=== PATIENT | female | born 1960 ===

== ENCOUNTER 2024-12-27 10:24 | Observation (INO) | payer OTHER ==
[2024-12-27] MEDS ORDERED: PROMETHAZINE INJ 25 MG/ML AMP ONE (11:32)
[2024-12-27] MEDS ORDERED: VANCOMYCIN 1 GM/VIAL ONE (11:32)
[2024-12-27] MEDS ORDERED: NA CHLORIDE 0.9% 250 ML ONE (11:33)
[2024-12-27] MEDS ORDERED: MORPHINE 4 MG/ML SYR ONE ×2 (11:33→13:37)
--- NOTE | 2024-12-27 12:21 | RAD REPORT ---
EXAM:Extremity Venous Uni Ltd HISTORY: Left leg pain TECHNIQUE: Sonographic evaluation left lower extremity performed.Grayscale, color and spectral analys is performed on all vessels COMPARISON: None. FINDINGS: Left common femoral, superficial femoral, greater saphenous, popliteal and posterior tibial veins are compressible and demonstrate augmentation. Doppler demonstrates good flow. IMPRESSION: No evidence of deep venous thrombosis involving the left lower extremity.
--- NOTE | 2024-12-27 12:22 | RAD REPORT ---
EXAMINATION: UPPER EXTREMITY VENOUS UNILATE CLINICAL INDICATION: Arm pain TECHNIQUE: Complete bilateral duplex sonography of the right upper extremity veins was performed. The examination included compression for vein patency, color Doppler imaging and flow augmentation in response to distal compression of the internal jugular,, subclavian, axillary, brachial, radial, ulna r, cephalic and basilic veins. .Grayscale, color and spectral analysis performed on all vessels COMPARISON: No prior exam. FINDINGS: The right internal jugular, subclavian, axillary, brachial, basilic, cephalic, radial and ulnar veins are generally compressible and demonstrate augmentation. Color Doppler demonstrates good flow. IMPRESSION: No evidence of venous thrombus right arm
[2024-12-27 12:50] LABS: Absolute Basophils 0.1 K/uL (0-0.5); Absolute Lymphocytes (CBC) 1.4 K/uL (0.7-4.9); Absolute Monocytes 1.1 K/uL (0.1-1.3); Absolute Neutrophil 9.1 K/uL (1.8-8.0); Basophils % 0.7 % (0-1.3); Eosinophils % 0.3 % (0-4.4); Hemoglobin 12.3 g/dL (12.0-15.0); Lymphocytes % 12.1 % (15.3-44.8); MCH 31.9 pg (27.0-35.0); MCHC 34.1 g/dL (32.0-36.0); MCV 93.7 fL (80-100); MPV 6.9 fL (7.6-11.3); Monocytes % 9.1 % (3.3-12.3); Neutrophils % 77.8 % (41.7-73.7); Platelets 205 thou/uL (152-406); RBC Red Blood Cell Count 3.84 M/uL (3.86-4.86); Red Cell Distribution Width 13.9 % (12.1-15.2)
[2024-12-27 12:58] LABS: PT Prothrombin Time 11.7 SECONDS (10-13.0); PTT, Activated Partial Thromb 29.5 SECONDS (27.2-37.4); Protime INR 1.03
[2024-12-27 13:07] LABS: Albumin 2.8 g/dL (3.4-5.0); Albumin/Globulin Ratio 0.8 (1.1-1.8); Anion Gap 8.5 mEq/L (5.0-15.0); Bilirubin Total 0.8 mg/dL (0.2-1.0); Globulin 3.4 g/dL (2.3-3.5); Potassium 3.5 mEq/L (3.5-5.1); Protein, Total 6.2 g/dL (6.4-8.2)
[2024-12-27] MEDS ORDERED: KETOROLAC 30 MG/ML INJ ONE (13:37)
--- NOTE | 2024-12-27 14:28 | EDPHYS ---
Physician Documentation [facility] Name: Ines Cain Age: 64 yrs Sex: Female : 1960 Arrival Date: 12/27/2024 Time: 10:24 Bed 5 Private MD: ED Physician Valentín Murry HPI: 12/27 13:52 This 64 yrs old Unknown Female presents to ER via Wheelchair with complaints of Nausea, rt Foot Pain. 13:52 Patient presents to the ED with progressively worsening left foot pain, swelling rt starting on Thursday after receiving massage at the [facility]. He states that he went to the ER [place] on Thursday, negative x-ray. Reports that she developed nausea today. She noted that she was febrile, tachycardic with reportedly high white count at [place] but does not know the numbers. Was told to come to the ER by her PCP today. Denies of acute complaints, symptoms are moderate in severity, no other aggravating or alleviating factors.. Historical: - Allergies: 10:55 No Known Allergies; db - PMHx: 10:55 Cancer; Cancer; db - PSHx: 10:55 BREAST; db - Immunization history:: Adult Immunizations unknown. - Infectious Disease History:: Denies. - Social history:: Smoking status: Patient denies any tobacco usage or history of. - Family history:: not pertinent. ROS: 13:52 Constitutional: Negative for fever, chills, and weight loss, Cardiovascular: Negative rt for chest pain, palpitations, and edema, Respiratory: Negative for shortness of breath, cough, wheezing, and pleuritic chest pain, 13:52 Abdomen/GI: Positive for nausea, Negative for abdominal pain, 13:52 MS/extremity: Positive for pain, swelling, Exam: 13:52 ECG was reviewed by the Attending Physician. rt 13:56 Constitutional: This is a well developed, well nourished patient who is awake, alert, rt and in no acute distress. Head/Face: Normocephalic, atraumatic. Chest/axilla: Normal chest wall appearance and motion. Nontender with no deformity. No lesions are appreciated. Cardiovascular: Regular rate and rhythm with a normal S1 and S2. No gallops, murmurs, or rubs. Normal PMI, no JVD. No pulse deficits. Respiratory: Lungs have equal breath sounds bilaterally, clear to auscultation and percussion. No rales, rhonchi or wheezes noted. No increased work of breathing, no retractions or nasal flaring. Abdomen/GI: Soft, non-tender, with normal bowel sounds. No distension or tympany. No guarding or rebound. No evidence of tenderness throughout. 13:56 Musculoskeletal/extremity: Warmth, erythema noted to the left ankle, pulses, motor, sensation are intact. Vital Signs: 10:45 BP 127 / 85; Pulse 67; Resp 16; Temp 98.7(O); Pulse Ox 100% ; Weight 81.65 kg; Height 5 db ft. 2 in. ; Pain 10/10; 13:00 BP 133 / 79; Pulse 65; Resp 20; Pulse Ox 98% ; kn 13:20 Pain 10/10; jl7 13:49 BP 136 / 72; Pulse 69; Resp 15; Pulse Ox 99% ; jl7 16:53 BP 129 / 74; Pulse 63; Resp 17; Pulse Ox 95% ; jl7 10:45 Body Mass Index 32.92 (81.65 kg, 157.48 cm) db 10:45 Pain Scale: Adult db 13:20 Pain Scale: Adult jl7 MDM: 10:46 Medical Screening Exam initiated rt 14:27 Differential diagnosis: Cellulitis, DVT. Data reviewed: vital signs, nurses notes, lab rt test result(s), EKG, radiologic studies. Consideration of Admission/Observation Patient was admitted/placed on observation. Management of patient was discussed with the following: Hospitalist: Agrees to admit. I considered the following discharge prescriptions or medication management in the emergency department Medications were administered in the Emergency Department. See MAR. Test considered but Not performed: X-ray: Low suspicion for bony abnormality, x-rays are not indicated. Counseling: I had a detailed discussion with the patient and/or guardian regarding the historical points, exam findings, and any diagnostic results supporting the discharge/admit diagnosis, lab results, radiology results, the need for further work-up and treatment in the hospital. Response to treatment: the patient's symptoms have mildly improved after treatment. 12/27 11:13 Order name: Blood Culture Adult (2) rt 12/27 11:13 Order name: CBC with Diff; Complete Time: 13:12 rt 12/27 11:13 Order name: CMP; Complete Time: 13:12 rt 12/27 11:13 Order name: Lactate w/ 2H reflex if indic.; Complete Time: 13:12 rt 12/27 11:13 Order name: Protime (+inr); Complete Time: 13:12 rt 12/27 11:13 Order name: Ptt, Activated; Complete Time: 13:12 rt 12/27 15:53 Order name: Uric Acid EDMS 12/27 15:53 Order name: Basic Metabolic Panel EDMS 12/27 15:53 Order name: Basic Metabolic Panel EDMS 12/27 15:54 Order name: Basic Metabolic Panel EDMS 12/27 15:54 Order name: Basic Metabolic Panel EDMS 12/27 15:54 Order name: Basic Metabolic Panel EDMS 12/27 15:54 Order name: Basic Metabolic Panel EDMS 12/27 15:54 Order name: Basic Metabolic Panel EDMS 12/27 15:54 Order name: Basic Metabolic Panel EDMS 12/27 15:54 Order name: CBC with Automated Diff EDMS 12/27 15:54 Order name: CBC with Automated Diff EDMS 12/27 15:54 Order name: CBC with Automated Diff EDMS 12/27 15:54 Order name: CBC with Automated Diff EDMS 12/27 15:54 Order name: CBC with Automated Diff EDMS 12/27 15:54 Order name: CBC with Automated Diff EDMS 12/27 15:54 Order name: CBC with Automated Diff EDMS 12/27 15:54 Order name: CBC with Automated Diff EDMS 12/27 15:54 Order name: Magnesium EDMS 12/27 15:54 Order name: Magnesium EDMS 12/27 15:54 Order name: Magnesium EDMS 12/27 15:54 Order name: Magnesium EDMS 12/27 15:54 Order name: Magnesium EDMS 12/27 15:54 Order name: Magnesium EDMS 12/27 15:54 Order name: Magnesium EDMS 12/27 15:54 Order name: Magnesium EDMS 12/27 15:54 Order name: Phosphorus EDMS 12/27 15:54 Order name: Phosphorus EDMS 12/27 15:54 Order name: Phosphorus EDMS 12/27 15:54 Order name: Phosphorus EDMS 12/27 15:54 Order name: Phosphorus EDMS 12/27 15:54 Order name: Phosphorus EDMS 12/27 15:54 Order name: Phosphorus EDMS 12/27 15:54 Order name: Phosphorus EDMS 12/27 16:25 Order name: Vancomycin Level Trough EDMS 12/27 11:13 Order name: Extremity Venous Uni Ltd US; Complete Time: 12:26 rt 12/27 11:21 Order name: UPPER EXTREMITY VENOUS UNILATE; Complete Time: 12:26 EDMS 12/27 15:54 Order name: Foot Left W/Con EDMS 12/27 11:13 Order name: EKG; Complete Time: 11:14 rt 12/27 11:13 Order name: Accucheck; Complete Time: 12:50 rt 12/27 11:13 Order name: Cardiac monitoring; Complete Time: 11:57 rt 12/27 11:13 Order name: EKG - Nurse/Tech; Complete Time: 12:42 rt 12/27 11:13 Order name: IV Saline Lock - Large Bore; Complete Time: 12:42 rt 12/27 11:13 Order name: Labs collected and sent; Complete Time: 12:42 rt 12/27 11:13 Order name: O2 Per Protocol; Complete Time: 12:42 rt 12/27 11:13 Order name: O2 Sat Monitoring; Complete Time: 12:42 rt 12/27 11:13 Order name: Vital Signs; Complete Time: 12:42 rt EC:52 Rate is 61 beats/min. Rhythm is regular, Normal Sinus Rhythm with No ectopy. QRS [place] rt is Normal. DE interval is normal. QRS interval is normal. QT interval is normal. No Q waves. T waves are Normal. No ST changes noted. Interpreted by me. Administered Medications: 12:20 Drug: Promethazine IM 12.5 mg IM once Route: IM; Site: left deltoid; jl7 12:40 Follow up: Response: No adverse reaction; Nausea is decreased jl7 12:45 Drug: morphine IVP or IV 4 mg IVP once over 4 mins Route: IVP; Infused Over: 4 mins; jl7 Site: left antecubital; 13:20 Follow up: Pain 10/10 Adult; Response: No adverse reaction; Pain is unchanged, jl7 physician notified; RASS: Restless (+1) 12:47 Drug: vancoMYCIN IVPB 1 grams IVPB once over 2 hrs Route: IVPB; Infused Over: 2 hrs; jl7 Site: left antecubital; 14:47 Follow up: Response: No adverse reaction; IV Status: Completed infusion jl7 13:43 Drug: Ketorolac IVP 15 mg IVP once Route: IVP; Site: left antecubital; jl7 14:15 Follow up: Response: No adverse reaction; Pain is decreased jl7 13:43 Drug: morphine IVP or IV 4 mg IVP once over 4 mins Route: IVP; Infused Over: 4 mins; jl7 Site: left antecubital; 14:15 Follow up: Response: No adverse reaction; Pain is decreased jl7 Disposition Summary: 12/27/24 14:27 Hospitalization Ordered Notes: Hospitalization Status: Observation rt Provider: Jeffry Lassiter rt Location: Telemetry/MedSurg (observation) rt Condition: Stable rt Problem: new rt Symptoms: are unchanged rt Bed/Room Type: Standard rt Room Assignment: 216(12/27/24 16:05) bd Diagnosis - Cellulitis to left lower extremity rt - Intractable pain rt Forms: - Medication Reconciliation Form rt - SBAR form rt - Leadership Thank You Letter rt Signatures: Dispatcher [employer] EDAmelia Gunn Jahala, RN RN jl7 Madyson Martinez, RN RN db Valentín Murry MD MD rt Corrections: (The following items were deleted from the chart) 11:14 11:14 Extremity Venous Uni Ltd+[email or web address] ordered. EDIN EDMS 16:05 14:27 rt bd
--- NOTE | 2024-12-27 14:28 | ER ---
Nurse's Notes [facility] Name: Ines Cain Age: 64 yrs Sex: Female : 1960 Arrival Date: 12/27/2024 Time: 10:24 Bed 5 Private MD: Diagnosis: Cellulitis to left lower extremity;Intractable pain Presentation: 12/27 10:45 Chief complaint: Patient states: NAUSEA STARTED TODAY 0800. LEFT FOOT SWELLING SINCE db THURSDAY AFTER RECEIVING FOOT MASSAGE DURING PEDICURE. PAIN AND SWELLING STARTED IN EVENING GRADUALLY GOT WORSE. SEEN AT [facility] FOR PAIN ONLY XRAY PERFORMED NO FRX. TODAY PAIN IS WORSE WITH INCREASED SWELLING UNABLE TO BEAR WEIGHT ON FOOT. HX OF LYMPHADEMA AND CANCER. TEXT PCP TOLD TO COME TO ER TODAY. STATES THURSDAY HAD A RASH , FEVER, AND ELEVATED WBC TO RIGHT ARM. SWELLING AND RASH TO ARM ARE NOW GONE. 10:45 Coronavirus screen: Client denies travel out of the [place] in the last 14 days. At this db time, the client does not indicate any symptoms associated with coronavirus-19. Ebola Screen: Patient negative for fever greater than or equal to 101.5 degrees Fahrenheit, and additional compatible Ebola Virus Disease symptoms Patient denies exposure to infectious person. Patient denies travel to an Ebola-affected area in the 21 days before illness onset. No symptoms or risks identified at this time. Initial Sepsis Screen: Does the patient meet any 2 criteria? No. Patient's initial sepsis screen is negative. Does the patient have a suspected source of infection? No. Patient's initial sepsis screen is negative. Risk Assessment: Do you want to hurt yourself or someone else? Patient reports no desire to harm self or others. Onset of symptoms was December 24, 2024. 10:45 Method Of Arrival: Wheelchair db 10:45 Acuity: PALOMO 3 db Triage Assessment: 10:45 General: Appears in no apparent distress. uncomfortable, Behavior is calm, cooperative. db Pain: Complains of pain in left foot. EENT: No deficits noted. No signs and/or symptoms were reported regarding the EENT system. Neuro: Level of Consciousness is awake, alert, obeys commands, Oriented to person, place, time, situation, Speech is normal. Cardiovascular: No deficits noted. Respiratory: Airway is patent Respiratory effort is even, unlabored, Respiratory pattern is regular, symmetrical. GI: Reports nausea. Musculoskeletal: Capillary refill < 3 seconds, Swelling present in left foot. Historical: - Allergies: 10: No Known Allergies; db - PMHx: 10:55 Cancer; Cancer; db - PSHx: 10:55 BREAST; db - Immunization history:: Adult Immunizations unknown. - Infectious Disease History:: Denies. - Social history:: Smoking status: Patient denies any tobacco usage or history of. - Family history:: not pertinent. Screenin: [facility] ED Fall Risk Assessment (Adult) History of falling in the last 3 months, db including since admission No falls in past 3 months (0 pts) Confusion or Disorientation No (0 pts) Intoxicated or Sedated No (0 pts) Impaired Gait No (0 pts) Mobility Assist Device Used No (0 pt) Altered Elimination No (0 pt) Score/Fall Risk Level 0 - 2 = Low Risk Oriented to surroundings, Maintained a safe environment. Abuse screen: Denies threats or abuse. Denies injuries from another. Nutritional screening: No deficits noted. Tuberculosis screening: No symptoms or risk factors identified. Assessment: 10:55 Reassessment: SEE TRIAGE FOR INITIAL ASSESSMENT. db 12:00 General: Appears in no apparent distress. uncomfortable, Behavior is cooperative, jl7 crying. Pain: Complains of pain in left foot Pain currently is 10 out of 10 on a pain scale. Neuro: Toribio Agitation-Sedation Scale (RASS): +1 Restless Level of Consciousness is awake, alert, obeys commands, Oriented to person, place, time, situation. Cardiovascular: Patient's skin is warm and dry. Respiratory: Airway is patent Respiratory effort is even, unlabored, Respiratory pattern is regular, symmetrical. GI: Abdomen is non-distended, Reports nausea. Derm: Skin is pink, warm \T\ dry. Musculoskeletal: Swelling present in left foot. 13:00 Reassessment: Patient appears in no apparent distress at this time. No changes from jl7 previously documented assessment. Patient and/or family updated on plan of care and expected duration. Pain level reassessed. Patient is alert, oriented x 3, equal unlabored respirations, skin warm/dry/pink. Vital Signs: 10:45 BP 127 / 85; Pulse 67; Resp 16; Temp 98.7(O); Pulse Ox 100% ; Weight 81.65 kg; Height 5 db ft. 2 in. ; Pain 10/10; 13:00 BP 133 / 79; Pulse 65; Resp 20; Pulse Ox 98% ; kn 13:20 Pain 10/10; jl7 13:49 BP 136 / 72; Pulse 69; Resp 15; Pulse Ox 99% ; jl7 16:53 BP 129 / 74; Pulse 63; Resp 17; Pulse Ox 95% ; jl7 10:45 Body Mass Index 32.92 (81.65 kg, 157.48 cm) db 10:45 Pain Scale: Adult db 13:20 Pain Scale: Adult jl7 ED Course: 10:31 Patient arrived in ED. al6 10:36 Valentín Murry MD is Attending Physician. rt 10:45 Arm band placed on Patient placed in an exam room. db 10:48 Madyson Martinez, RN is Primary Nurse. db 10:55 Triage completed. db 10:55 Patient has correct armband on for positive identification. Bed in low position. Call db light in reach. Side rails up X 1. Pulse ox on. NIBP on. Warm blanket given. Pillow given. 11:28 Nam Call, RN is Primary Nurse. jl7 12:10 Extremity Venous Uni Ltd US In Process Unspecified. EDMS 12:10 UPPER EXTREMITY VENOUS UNILATE In Process Unspecified. EDMS 12:10 Missed attempt(s): 22 gauge in left forearm. Bleeding controlled, band aid applied, jl7 catheter tip intact. 12:15 Missed attempt(s): 22 gauge in left forearm. Bleeding controlled, band aid applied, jl7 catheter tip intact. 12:30 Initial lab(s) drawn, by me, sent to lab. First set of blood cultures drawn by me. jl7 12:40 Accessed peripheral vein via ultrasound, utilizing dynamic ultrasound technique using ss 20G Nexia IV catheter ,sterile technique, per hospital protocol. Clean \T\ dry. Dressing intact. Good blood return. Flushes easily. L AC. 12:40 No provider procedures requiring assistance completed. jl7 12:40 Second set of blood cultures drawn by me. jl7 13:00 Provided Education on: use of call [place]. jl7 14:25 Jeffry Lassiter is Hospitalizing Provider. rt 17:25 Patient admitted, IV remains in place. intact, No redness/swelling at site. jl7 Administered Medications: 12:20 Drug: Promethazine IM 12.5 mg IM once Route: IM; Site: left deltoid; jl7 12:40 Follow up: Response: No adverse reaction; Nausea is decreased jl7 12:45 Drug: morphine IVP or IV 4 mg IVP once over 4 mins Route: IVP; Infused Over: 4 mins; jl7 Site: left antecubital; 13:20 Follow up: Pain 10/10 Adult; Response: No adverse reaction; Pain is unchanged, jl7 physician notified; RASS: Restless (+1) 12:47 Drug: vancoMYCIN IVPB 1 grams IVPB once over 2 hrs Route: IVPB; Infused Over: 2 hrs; jl7 Site: left antecubital; 14:47 Follow up: Response: No adverse reaction; IV Status: Completed infusion jl7 13:43 Drug: Ketorolac IVP 15 mg IVP once Route: IVP; Site: left antecubital; jl7 14:15 Follow up: Response: No adverse reaction; Pain is decreased jl7 13:43 Drug: morphine IVP or IV 4 mg IVP once over 4 mins Route: IVP; Infused Over: 4 mins; jl7 Site: left antecubital; 14:15 Follow up: Response: No adverse reaction; Pain is decreased jl7 Medication: 10:55 VIS not applicable for this client. db Outcome: 14:27 Decision to Hospitalize by Provider. rt 17:24 Admitted to Med/surg via stretcher, with chart, jl7 17:24 Condition: stable 17:24 Discharge instructions given to patient, Instructed on the need for admit, Demonstrated understanding of instructions, 17:50 Patient left the ED. bc6 Signatures: Dispatcher [employer] EDMS Rosalia Bennett RN Nam Persaud RN RN jl7 Madyson Martinez RN RN db [place], Ryan, MD MD rt Beverly Vazquez bc6 BOB ZARATE RN RN kn Landin, Alissa al6 Corrections: (The following items were deleted from the chart) 10:58 10:55 General: Appears in no apparent distress. uncomfortable, Behavior is calm, db cooperative, db 10:58 10:55 Pain: Complains of pain in left foot db db 10:58 10:55 Neuro: Level of Consciousness is awake, alert, obeys commands, Oriented to db person, place, time, situation, Speech is normal, db 10: 10:55 Musculoskeletal: Capillary refill < 3 seconds, Swelling present in left foot db db 10: 10:55 Respiratory: Airway is patent Respiratory effort is even, unlabored, Respiratory db pattern is regular, symmetrical, db : 10:55 Cardiovascular: No deficits noted. db db : 10:55 EENT: No deficits noted. No signs and/or symptoms were reported regarding the db EENT system. db : 10:55 GI: Reports nausea, db db
--- NOTE | 2024-12-27 14:47 | P.HP ---
Certification for Inpatient Patient admitted to: Observation Patient will require the following post-hospital care: None Practitioner: I am a practitioner with admitting privileges, knowledge of patient current condition, hospital course, and medical plan of care. Services: Services provided to patient in accordance with Admission requirements found in Title 42 Section 412.3 of the Code of Federal Regulations Patient History Date of Service: 12/27/24 Reason for admission: Acute left foot cellulitis vs sympathetic nerve damage History of Present Illness: Ines Cain is a 64 year old female with pmhx breast cancer, HTN, HLD, Hypothyroidism who presents to the ED with worsening Left foot swelling after having a pedicure on Thursday. She reports, at the time of the foot massage she felt a sharp electric pain on the lateral side of the left foot that caused pain only allowing her to use her heel to ambulate with slight comfort. She reports the pain has worsened that now the bottom of her foot is too painful to ambulate. She states she was seen in [place] with a negative left foot xray and minimal pain relief prior to discharge home. She messaged her oncologist conc erning her right arm lymphadema that is now present, they recommended coming to the ED today. US Right upper extremity reports "The right internal jugular, subclavian, axillary, brachial, basilic, cephalic, radial and ulnar veins are generally compressible and demonstrate augmentation. Color Doppler demonstrates good flow." US Left lower extremity reports "Left common femoral, superficial femoral, greater saphenous, popliteal and posterior tibial veins are compressible and demonstrate augmentation. Doppler demonstrates good flow." Ines will be admitted to hospitalist service for further evaluation and treatment of left foot cellulitis vs sympathetic nerve damage. Allergies No Known Allergies Allergy (Unverified 08/26/17 16:42) Home Medications: Aspirin [Aspirin EC 81 MG] 81 mg PO DAILY 12/27/24 Atorvastatin Calcium [Lipitor] 20 mg PO BEDTIME 12/27/24 Duloxetine HCl [Cymbalta] 60 mg PO DAILY 12/27/24 Levothyroxine Sodium [Synthroid] 25 mcg PO DAILY 12/27/24 Lisinopril/Hydrochlorothiazide [Lisinopril-Hctz 10-12.5 mg Tab] 12.5 mg PO DAILY 12/27/24 Physical Examination - Physical Exam General: Alert, In no apparent distress, Oriented x3 HEENT: Atraumatic, Normocephalic Neck: Supple, 2+ carotid pulse no bruit Respiratory: Clear to auscultation bilaterally, Normal air movement Cardiovascular: Regular rate/rhythm, Normal S1 S2 Gastrointestinal: Normal bowel sounds, Soft and benign Musculoskeletal: Swelling (Left foot ), Other (Right upper extremity edema) Neurological: Normal speech, Normal tone - Studies Laboratory Data (last 24 hrs) 12/27/24 12/27/24 12/27/24 12:40 12:40 12:40 WBC 11.70 H Hgb 12.3 Hct 36.0 Plt Count 205 PT 11.7 INR 1.03 APTT 29.5 Sodium 142 Potassium 3.5 BUN 13 Creatinine 0.80 Glucose 102 Total Bilirubin 0.8 AST 14 L ALT 66 H Alkaline Phosphatase 53 Assessment and Plan - Plan Assessment and Plan Left foot cellulitis vs sympathetic nerve damage -US Left lower extremity reports "Left common femoral, superficial femoral, greater saphenous, popliteal and posterior tibial veins are compressible and demonstrate augmentation. Doppler demonstrates good flow." -Left foot MRI with contrast pending -uric acid pending -vancomycin daily -Follow blood cultures -pain control Right breast cancer with right arm lymphedema -US Right upper extremity reports "The right internal jugular, subclavian, axillary, brachial, basilic, cephalic, radial and ulnar veins are generally compressible and demonstrate augmentation. Color Doppler demonstrates good flow." -elevate right arm HTN HLD Hypothyroidism -Continue home medications DVT ppx lovenox Full code LOS 24 hour OBS Discharge Plan: Home Plan to discharge in: 48 Hours - Advance Directives Does patient have a Living Will: No Does patient have a Durable POA for Healthcare: No
[2024-12-27] MEDS ORDERED: ACETAMINOPHEN 325 MG TABLET PO PRN (15:42)
[2024-12-27] MEDS: VANCOMYCIN 500 MG in NA CHLORIDE 0.9% 100 ML IVPB ONE (16:15)
[2024-12-27] MEDS ORDERED: HYDROCODONE/APAP 7.5/325 MG TAB ONE (17:18)
[2024-12-27] MEDS: HYDROCODONE/APAP 7.5/325 MG TAB PO PRN (17:20)
[2024-12-27 19:00] VITALS: BMI 31.8
[2024-12-27] MEDS: NA CHLORIDE 0.9% 100 ML ONE (19:42)
[2024-12-27] MEDS: VANCOMYCIN 500 MG/VIAL ONE (19:42)
[2024-12-27] MEDS: NA CHLORIDE 0.9% 1,000 ML IV SCH (19:44)
[2024-12-27] MEDS: MORPHINE 2 MG/ML SYR IV PRN (19:47)
[2024-12-27] MEDS: ATORVASTATIN 20 MG TAB PO SCH (21:31)
[2024-12-27] MEDS: KETOROLAC 30 MG/ML INJ IV ONE (23:05)
[2024-12-28 04:37] LABS: Anion Gap 9.7 mEq/L (5.0-15.0); Magnesium 1.9 mg/dL (1.6-2.4); Phosphorus 4.1 mg/dL (2.5-4.9); Potassium 3.7 mEq/L (3.5-5.1)
[2024-12-28] MEDS: LEVOTHYROXINE SOD 0.025 MG TAB PO SCH (05:30)
[2024-12-28 07:25] LABS: Absolute Basophils 0.1 K/uL (0-0.5); Absolute Eosinophils 0.1 K/uL (0-0.5); Absolute Lymphocytes (CBC) 2.4 K/uL (0.7-4.9); Absolute Monocytes 1.3 K/uL (0.1-1.3); Absolute Neutrophil 6.7 K/uL (1.8-8.0); Basophils % 0.5 % (0-1.3); Eosinophils % 0.9 % (0-4.4); Hematocrit 35.1 % (36.0-45.0); Lymphocytes % 22.8 % (15.3-44.8); MCH 31.9 pg (27.0-35.0); MCHC 34.2 g/dL (32.0-36.0); MCV 93.4 fL (80-100); MPV 6.9 fL (7.6-11.3); Monocytes % 12.1 % (3.3-12.3); Neutrophils % 63.7 % (41.7-73.7); Nucleated Red Blood Cells % 0.1 % (0-0); Platelets 176 thou/uL (152-406); RBC Red Blood Cell Count 3.76 M/uL (3.86-4.86)
[2024-12-28] MEDS: DULOXETINE 30 MG CAP PO SCH (07:48)
[2024-12-28] MEDS: POTASSIUM CL SA 10 MEQ TAB PO ONE (07:49)
[2024-12-28] MEDS: hydroCHLOROthiazide 12.5 MG CAP PO SCH (07:49)
[2024-12-28] MEDS: ASPIRIN EC 81 MG TAB PO SCH (07:49)
[2024-12-28] MEDS: lisinopriL 10 MG TAB PO SCH (07:50)
[2024-12-28 08:07] LABS: Platelet Estimate ADEQ; White Blood Cell Scan OK (OK)
[2024-12-28 08:08] LABS: Blood Morphology Comment NOT SEEN (NOT SEEN)
[2024-12-28] MEDS ORDERED: HOME MED 1 EA UNK (Lisinopril/Hydrochlorothiazide [Lisinopril-Hctz 10-12.5 Mg Tab] Tablet) PO SCH (09:00)
[2024-12-28] MEDS: VANCOMYCIN 1.5 GM in NA CHLORIDE 0.9% 500 ML IVPB SCH (09:32)
[2024-12-28] MEDS: METHYLPREDNISOLONE 40 MG INJ IV ONE (10:22)
[2024-12-28] MEDS: COLCHICINE 0.6 MG TAB PO ONE (10:22)
[2024-12-28] MEDS: KETOROLAC 30 MG/ML INJ IV ONE (10:35)
[2024-12-28 10:45] VITALS: O2SAT 97
--- NOTE | 2024-12-28 11:15 | EKG ---
Test Date: 2024-12-27 Test Time: 12:29:25 Head Banquet Waitress: KENRICK MEASUREMENT RESULTS: Intervals: Rate: 61 ND: 140 QRSD: 76 QT: 406 QTc: 408 [place]: P: 53 ND: 140 QRS: 32 T: 23 INTERPRETIVE STATEMENTS: Normal sinus rhythm Septal infarct, age undetermined Abnormal ECG No previous ECG available for comparison Electronically Signed On 12-28-24 11:13:26 CDT by Brandon Cline
[2024-12-28] MEDS ORDERED: VANCOMYCIN 1.5 GM in NA CHLORIDE 0.9% 500 ML IVPB SCH (12:00)
[2024-12-28] MEDS: COLCHICINE 0.6 MG TAB PO SCH (14:28)
[2024-12-28] MEDS: METHYLPREDNISOLONE 125 MG INJ IV SCH (16:38)
[2024-12-28] MEDS: ENOXAPARIN 40 MG/0.4 ML SQ SCH (16:39)
--- NOTE | 2024-12-28 17:58 | P.PN ---
Date of Service: 12/28/24 Subjective Good response to steroids and colchicine today Stopped hydrochlorothiazide d/t likely gout ROS 10 point ROS as noted above, otherwise negative Physical Exam General: Alert and Oriented x3, NAD HEENT: Atraumatic, Normocephalic Neck: Supple, 2+ carotid pulse no bruit Respiratory: Clear BBS, on RA Cardiovascular: Regular rate/rhythm, Normal S1 S2 Gastrointestinal: Normal bowel sounds, Soft and benign Musculoskeletal: Swelling (Left foot ), Other (Right upper extremity edema) Neurological: Normal speech, Normal tone Vitals Reviewed Problem list Left foot cellulitis vs Gout 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 Doppler demonstrates good flow." -Left foot MRI with contrast pending -vancomycin stopped, noninfectious -Follow blood cultures -Adjusted pain medications -Steroids and colchicine with good response Right breast cancer with right arm lymphedema -US Right upper extremity reports "The right internal jugular, subclavian, axillary, brachial, basilic, cephalic, radial and ulnar veins are generally compressible and demonstrate augmentation. Color Doppler demonstrates good flow." -elevate right arm -follow up outpatient for lymphatic treatment HTN HLD Hypothyroidism -Continue home medications DVT ppx lovenox Full code LOS discharge in the AM Discharge Plan: Home Plan to discharge in: 48 Hours Time Spent Managing Pts Care (In Minutes): 40
[2024-12-28] MEDS: WATER FOR INJ,STERILE 10 ML ONE (23:56)
[2024-12-29] MEDS: WATER FOR INJ,STERILE 10 ML ONE (05:22)
[2024-12-29] MEDS: HYDROMORPHONE HCL 0.5 MG/0.5 ML INJ IV PRN (05:46)
[2024-12-29 07:05] LABS: Absolute Lymphocytes (CBC) 0.7 K/uL (0.7-4.9); Absolute Monocytes 0.2 K/uL (0.1-1.3); Absolute Neutrophil 10.2 K/uL (1.8-8.0); Basophils % 0.2 % (0-1.3); Hematocrit 35.7 % (36.0-45.0); Hemoglobin 12.2 g/dL (12.0-15.0); Lymphocytes % 6.4 % (15.3-44.8); MCH 31.8 pg (27.0-35.0); MCHC 34.2 g/dL (32.0-36.0); Monocytes % 1.9 % (3.3-12.3); Neutrophils % 91.5 % (41.7-73.7); Platelets 205 thou/uL (152-406); RBC Red Blood Cell Count 3.84 M/uL (3.86-4.86); Red Cell Distribution Width 13.8 % (12.1-15.2)
[2024-12-29 07:16] LABS: Anion Gap 10.6 mEq/L (5.0-15.0); Phosphorus 3.2 mg/dL (2.5-4.9); Potassium 3.6 mEq/L (3.5-5.1)
[2024-12-29] MEDS: POTASSIUM CL SA 10 MEQ TAB PO ONE (08:43)
[2024-12-29] MEDS: COLCHICINE 0.6 MG TAB PO SCH (09:00)
[2024-12-29] MEDS: allopurinoL 300 MG TAB PO SCH (09:02)
[2024-12-29] MEDS: predniSONE 20 MG TAB PO SCH (09:02)
[2024-12-29] MEDS: METHYLPREDNISOLONE 125 MG INJ IV ONE (13:54)
--- NOTE | 2024-12-29 16:42 | P.DS ---
Admission Date: 12/27/24 Discharge Date: 12/29/24 Disposition: ROUTINE DISCHARGE Discharge Condition: GOOD Reason for Admission: Acute left foot cellulitis vs sympathetic nerve damage Brief History of Present Illness: Diagnosis HPI Ines Cain is a 64 year old female with pmhx breast cancer, HTN, HLD, Hypothyroidism who presents to the ED with worsening Left foot swelling after having a pedicure on Thursday. She reports, at the time of the foot massage she felt a sharp electric pain on the lateral side of the left foot that caused pain only allowing her to use her heel to ambulate with slight comfort. She reports the pain has worsened that now the bottom of her foot is too painful to ambulate. She states she was seen in [place] with a negative left foot xray and minimal pain relief prior to discharge home. She messaged her oncologist concerning her right arm lymphadema that is now present, they recommended coming to the ED today. US Right upper extremity reports "The right internal jugular, subclavian, axillary, brachial, basilic, cephalic, radial and ulnar veins are generally compressible and demonstrate augmentation. Color Doppler demonstrates good flow." US Left lower extremity reports "Left common femoral, superficial femoral, greater saphenous, popliteal and posterior tibial veins are compressible and demonstrate augmentation. Doppler demonstrates good flow." Ines will be admitted to hospitalist service for further evaluation and treatment of left foot cellulitis vs sympathetic nerve damage. Vital Signs/Physical Exam: Temp Pulse Resp BP Pulse Ox 98.0 F 69 18 150/86 H 97 12/29/24 12:00 12/29/24 12:00 12/29/24 12:48 12/29/24 12:00 12/29/24 12:48 Laboratory Data at Discharge: WBC 11.10 thou/uL (4.3-10.9) H 12/29/24 06:21 Hgb 12.2 g/dL (12.0-15.0) 12/29/24 06:21 Hct 35.7 % (36.0-45.0) L 12/29/24 06:21 Plt Count 205 thou/uL (152-406) 12/29/24 06:21 PT 11.7 SECONDS (10-13.0) 12/27/24 12:40 INR 1.03 12/27/24 12:40 APTT 29.5 SECONDS (27.2-37.4) 12/27/24 12:40 Sodium 141 mEq/L (136-145) 12/29/24 06:21 Potassium 3.6 mEq/L (3.5-5.1) 12/29/24 06:21 BUN 17 mg/dL (7-18) 12/29/24 06:21 Creatinine 0.92 mg/dL (0.55-1.02) 12/29/24 06:21 Glucose 175 mg/dL (74-106) H 12/29/24 06:21 Uric Acid Cancelled 12/27/24 15:50 Phosphorus 3.2 mg/dL (2.5-4.9) 12/29/24 06:21 Magnesium 2.0 mg/dL (1.6-2.4) 12/29/24 06:21 Total Bilirubin 0.8 mg/dL (0.2-1.0) 12/27/24 12:40 AST 14 U/L (15-37) L 12/27/24 12:40 ALT 66 U/L (13-56) H 12/27/24 12:40 Alkaline Phosphatase 53 U/L (45-117) 12/27/24 12:40 Home Medications: Aspirin [Aspirin EC 81 MG] 81 mg PO DAILY 12/27/24 Atorvastatin Calcium [Lipitor*] 20 mg PO BEDTIME 12/27/24 Duloxetine HCl [Cymbalta] 60 mg PO DAILY 12/27/24 Levothyroxine Sodium [Synthroid] 25 mcg PO DAILY 12/27/24 Colchicine [Colcrys *] 0.6 mg PO BID #10 tab 12/29/24 Hydrocodone 7.5/APAP 325 [[place] 7.5/325 mg*] 1 tab PO Q6HP PRN #20 tab 12/29/24 allopurinoL [Zyloprim*] 300 mg PO DAILY #30 tab 12/29/24 lisinopriL [Prinivil*] 10 mg PO DAILY #30 tab 12/29/24 predniSONE [Prednisone*] 20 mg PO BID #11 tab 12/29/24 New Medications: Hydrocodone 7.5/APAP 325 [[place] 7.5/325 mg*] 1 tab PO Q6HP PRN #20 tab PRN Reason: Pain Scale 5-7 (Moderate) Colchicine [Colcrys *] 0.6 mg PO BID #10 tab predniSONE [Prednisone*] 20 mg PO BID #11 tab lisinopriL [Prinivil*] 10 mg PO DAILY #30 tab allopurinoL [Zyloprim*] 300 mg PO DAILY #30 tab Physician Discharge Instructions: -DC IV and DC home -Follow-up with PCP in 1 to 2 weeks -Please call Dr. Green at [phone] if any questions regarding hospital stay -Please call nursing station at [phone] if any nursing or medication questions -Return to the emergency room if symptoms worsen Diet: Low purine Activity: Fall precautions Followup: OOT,OOT [Primary Care Provider] -
--- NOTE | 2024-12-29 17:55 | RAD REPORT ---
EXAM: MRI of the left foot without contrast HISTORY: Pain and swelling. ankle pain COMPARISON: TECHNIQUE: Multiplanar multisequence MR images were obtained of the left foot without contrast. FINDINGS: No marrow signal abnormality is seen in the visualized bones. No focal fluid collection is seen in t he soft tissues. The muscles and tendons appear intact. No fracture or dislocation. Mild soft tissue edema dorsal fore foot. IMPRESSION: No significant abnormality detected. Please note that evaluation is limited without IV contrast.
[2024-12-29 17:56] VITALS: BP 138/62; TEMP 97.8
== END 2024-12-29 20:05 | disposition home or self-care (01) ==
LOC: ER 10:24 → ERHOLD 15:42 → 2ND 17:31
PROVIDERS: ADMIT Hospitalist; ATTEND Hospitalist
DX: L03.116 Cellulitis of left lower limb (principal); I89.0 Lymphedema, not elsewhere classified; E03.9 Hypothyroidism, unspecified; I10 Essential (primary) hypertension; Z85.3 Personal history of malignant neoplasm of breast
CPT/HCPCS: 96365; 93005; 87040 ×2; 85025 ×3; 80048 ×2; 36415 ×2; 83735 ×2; 84100 ×2; 85610; 83605; 85730; 80053; 84145; 93971 ×2; 73718; 97116 ×2; 97161; 96375; 96372; 99285; 96366; J2550; J7512 ×2; J1650 ×2; J3370 ×2; J2270 ×3; J1171 ×2; J2919 ×5; J7050; J7040; J7030 ×3; G0378 ×4